=== PATIENT | male | born 1990 | race Caucasian/White ===

== ENCOUNTER 2018-02-28 21:03 | Emergency (ER) | payer OTHER ==
[2018-02-28 21:10] VITALS: BP 129/73
--- NOTE | 2018-02-28 21:55 | UC ---
Skin Complaint HPI - HPI Summary HPI Summary: 27 yo gentleman c/o L knee redness and swelling, progressively worse all day. Started with a splinter in knee 02/24/18, removed it but noted pustule at the site, which he popped. Redness increased, yesterday used a sterile knife to try to open the area, but did not notice purulence. Today redness, swelling, pain rapidly increased, and he noted dark discoloration around the affected site. Able to walk and bend knee, but hurts. Also c/o L calf pain. No sob / cp / palpitations. No distal p/d/w. No hx similar. Nonsmoker, although + 2nd hand smoke. Non-diabetic. Last tet booster - not sure (recently in but not sure if immun tet status). - History of Current Complaint Chief Complaint: UCSkin Time Seen by Provider: 02/28/18 21:44 Stated Complaint: SPLINTER IN KNEE Hx Obtained From: Patient Pain Intensity: 8 - Allergy/Home Medications Allergies/Adverse Reactions: Allergies Allergy/AdvReac Type Severity Reaction Status Date / Time No Known Allergies Allergy Verified 02/28/18 21:10 Home Medications: Home Medications Ibuprofen TAB* [Motrin TAB* 600 MG] 600 mg PO Q6H PRN 02/28/18 [History Confirmed 02/28/18] Review of Systems Constitutional: Negative Skin: Other - see hpi Eyes: Negative ENT: Negative Respiratory: Negative Cardiovascular: Negative Gastrointestinal: Negative Genitourinary: Negative Motor: Other - see hpi Musculoskeletal: Other: Neurological: Negative Psychological: Negative Is Patient Immunocompromised?: No All Other Systems Reviewed And Are Negative: Yes PMH/Surg Hx/FS Hx/Imm Hx Previously Healthy: Yes - Surgical History Surgical History: Yes Surgery Procedure, Year, and Place: appendectomy, hand surgery - Family History Known Family History: Negative: Diabetes - Social History Occupation: Employed Full-time Alcohol Use: None Substance Use Type: Marijuana Smoking Status (MU): Never Smoked Tobacco Physical Exam Triage Information Reviewed: Yes Appearance: Well-Nourished - NAD, conversing easily and appropriately Vital Signs: Initial Vital Signs Temp 98.7 F 02/28/18 21:06 Pulse 83 02/28/18 21:06 Resp 18 02/28/18 21:06 BP 129/73 02/28/18 21:06 Pulse Ox 100 02/28/18 21:06 Eye Exam: Normal - grossly normal ENT Exam: Normal - grossly normal Neck exam: Normal Neck: Positive: Supple Respiratory Exam: Normal - resp rate normal. No tachynpea, no dyspnea. Cardiovascular Exam: Normal - heart rate normal, good dp / pt pulses Left. Abdominal Exam: Normal Abdomen Description: Positive: Nontender Musculoskeletal Exam: Other - L ant sup tib region with dark eschar, flaked off with pink granulation underneath. + serous mild drainage. This was cultured. The area is firm and tender. + dark red, nonblanching area approx 4.5cm x 5cm swelling with demarcation visible. There is case packer, blanching redness extending down the ant leg and calf. Without phoebe shelly's, although general tender. Distal cap refill good. Distal pulses good. Neurological Exam: Normal - grossly nonfocal Psychological Exam: Normal - conversing easily and appropriately Skin Exam: Other - see "musc skel" Gait steady, slight limp on affected side Course/Dx - Course Course Of Treatment: Redness and swelling have worsened quickly over the course of the last few days, mostly today. Nonblanching deep red is concerning for deeper process, consider strep involvement. Knee tender, not frankly septic. Recommend ED evaluation and management. Mr. Espinosa expresses understanding and agreement. The person who drove him here will drive him to ED. Aware that he likely will need tetanus booster as well. Questions as posed answered to the best of my ability. - Diagnoses Provider Diagnoses: Cellulits. See MDM. To ED Discharge - Sign-Out/Discharge Documenting (check all that apply): Patient Departure - Discharge Plan Condition: Guarded Disposition: HOME-RECOMMEND TO ED Patient Education Materials: Cellulitis (ED) Referrals: Jimena Conde NP [Primary Care Provider] - Additional Instructions: Please go to the Emergency Department. Call 911 if problem in the meantime. - Billing Disposition and Condition Condition: GUARDED Disposition: Home-Recommend to ED
== END 2018-02-28 22:15 | disposition home health service (06) ==
LOC: UCEAST 21:03
DX: L03.116 Cellulitis of left lower limb (principal); Z77.22 Contact with and (suspected) exposure to environmental tobacco smoke (acute) (chronic)
CPT/HCPCS: 87070; 87205; 87640; 87641; 99202; G0463

== ENCOUNTER 2018-03-01 08:17 | Emergency (ER) | payer OTHER ==
[2018-03-01] MEDS ORDERED: Clindamycin 600 MG IVPREMIX(* 600 MG/50 ML SDV IV ONE (08:49)
[2018-03-01 09:26] LABS: Hematocrit 43 % (42-52); Hemoglobin 14.6 g/dl (14.0-18.0); Mean Corpuscular HGB Conc 34 g/dl (31-36); Mean Corpuscular Hemoglobin 30 pg (27-31); Mean Corpuscular Volume 89 fL (80-94); Platelet Count 251 10^3/ul (150-450); Red Cell Distribution Width 14 % (10.5-15); White Blood Count 8.1 10^3/ul (3.5-10.8)
[2018-03-01 09:27] LABS: ABS Basophils 0.1 10^3/ul (0-0.2); ABS Eosinophils 0.1 10^3/ul (0-0.6); ABS Lymphocytes 0.8 10^3/ul (1.0-4.8); ABS Monocytes 1.1 10^3/ul (0-0.8); ABS Neutrophils 5.9 10^3/ul (1.5-7.7); ABS Nucleated RBC 0 10^3/ul; Eosinophil % 1.5 % (0-6); Lymphocyte % 10.5 % (25-47); Nucleated Red Blood Cells % 0
[2018-03-01 09:51] LABS: EGFR Non-African American 83.2 (>60)
[2018-03-01 10:12] VITALS: BP 120/66
--- NOTE | 2018-03-01 10:21 | ED ---
Skin Complaint - HPI Summary HPI Summary: Patient is a 27-year-old male presenting to the ED with an abscess to the left superior tibia region 1 week. He was seen at urgent care yesterday and was encouraged to come to the ED, however he did not have time and instead comes to the ED at this time. He states the area began with a splinter which he removed successfully, however the area became more red and tender with a pustule forming to the surface. The area is approximately 5 cm in diameter with demarcation. There is slight erythema extending down to the anterior calf. Denies any swelling. - History of Current Complaint Chief Complaint: EDSoftTissueLowExtr Time Seen by Provider: 03/01/18 08:33 Stated Complaint: LT LEG PAIN Hx Obtained From: Patient Onset/Duration: Started Hours Ago Skin Exposure Onset/Duration: Hours Ago, Days Ago Timing: Constant, Lasting Days Onset Severity: Moderate Current Severity: Moderate Pain Intensity: 1 Pain Scale Used: 0-10 Numeric Skin Location: Discrete, Leg Character: Pain, Redness, Raised Aggravating Symptom(s): Nothing, Touch Alleviating Symptom(s): Nothing Associated Signs & Symptoms: Drainage Related History: Foreign Body - Allergy/Home Medications Allergies/Adverse Reactions: Allergies Allergy/AdvReac Type Severity Reaction Status Date / Time No Known Allergies Allergy Verified 02/28/18 21:10 PMH/Surg Hx/FS Hx/Imm Hx Previously Healthy: Yes Endocrine/Hematology History: Denies: Hx Diabetes, Hx Thyroid Disease Cardiovascular History: Denies: Hx Hypertension Respiratory History: Denies: Hx Asthma, Hx Chronic Obstructive Pulmonary Disease (COPD) GI History: Denies: Hx Ulcer - Surgical History Surgery Procedure, Year, and Place: appendectomy, hand surgery - Immunization History Hx Pertussis Vaccination: No Immunizations Up to Date: Unable to Obtain/Confirm Infectious Disease History: No Infectious Disease History: Denies: Hx Hepatitis, Hx Human Immunodeficiency Virus (HIV), Traveled Outside the [place] in Last 30 Days - Family History Known Family History: Negative: Diabetes - Social History Occupation: Employed Full-time Lives: With Family Alcohol Use: None Hx Substance Use: Yes Substance Use Type: Reports: Marijuana Hx Tobacco Use: No Smoking Status (MU): Never Smoked Tobacco Review of Systems Constitutional: Negative Negative: Fever, Chills, Fatigue, Skin Diaphoresis Negative: Palpitations, Chest Pain Negative: Shortness Of Breath, Cough Genitourinary: Negative Positive: no symptoms reported, see HPI Positive: Other - pustule overlying area of 5cm erythema and warmth representing abscess over cellulitis Neurological: Negative All Other Systems Reviewed And Are Negative: Yes Physical Exam Triage Information Reviewed: Yes Vital Signs On Initial Exam: Initial Vitals Temp Pulse Resp BP Pulse Ox 98.8 F 57 16 124/86 98 03/01/18 08:27 03/01/18 08:27 03/01/18 08:27 03/01/18 08:27 03/01/18 08:27 Vital Signs Reviewed: Yes Appearance: Positive: Well-Appearing, Well-Nourished Skin: Positive: Warm, Skin Color Reflects Adequate Perfusion, Other - pustule overlying area of 5cm erythema and warmth representing abscess over cellulitis Head/Face: Positive: Normal Head/Face Inspection Eyes: Positive: EOMI, JORDI, Conjunctiva Clear Neck: Positive: Supple, No Lymphadenopathy Respiratory/Lung Sounds: Positive: Clear to Auscultation, Breath Sounds Present Cardiovascular: Positive: RRR, Pulses are Symmetrical in both Upper and Lower Extremities Musculoskeletal: Positive: Strength/ROM Intact Neurological: Positive: Sensory/Motor Intact, Alert, Oriented to Person Place, Time, Speech Normal Psychiatric: Positive: Normal, Affect/Mood Appropriate AVPU Assessment: Alert Diagnostics - Vital Signs Vital Signs Temp Pulse Resp BP Pulse Ox 03/01/18 10:10 98.7 F 69 16 120/66 98 03/01/18 08:27 98.8 F 57 16 124/86 98 - Laboratory Lab Results: Lab Results 03/01/18 03/01/18 Range/Units 09:03 09:03 WBC 8.1 (3.5-10.8) 10^3/ul RBC 4.80 (4.00-5.40) 10^6/ul Hgb 14.6 (14.0-18.0) g/dl Hct 43 (42-52) % MCV 89 (80-94) fL MCH 30 (27-31) pg MCHC 34 (31-36) g/dl RDW 14 (10.5-15) % Plt Count 251 (150-450) 10^3/ul MPV 8.0 (7.4-10.4) um3 Neut % (Auto) 73.0 (38-83) % Lymph % (Auto) 10.5 L (25-47) % [place] % (Auto) 14.2 H (0-7) % Eos % (Auto) 1.5 (0-6) % Baso % (Auto) 0.8 (0-2) % Absolute Neuts (auto) 5.9 (1.5-7.7) 10^3/ul Absolute Lymphs (auto) 0.8 L (1.0-4.8) 10^3/ul Absolute Monos (auto) 1.1 H (0-0.8) 10^3/ul Absolute Eos (auto) 0.1 (0-0.6) 10^3/ul Absolute Basos (auto) 0.1 (0-0.2) 10^3/ul Absolute Nucleated RBC 0 10^3/ul Nucleated RBC % 0 Sodium 138 (135-145) mmol/L Potassium 4.1 (3.5-5.0) mmol/L Chloride 106 (101-111) mmol/L Carbon Dioxide 27 (22-32) mmol/L Anion Gap 5 (2-11) mmol/L BUN 11 (6-24) mg/dL Creatinine 1.06 (0.67-1.17) mg/dL Est GFR ( Amer) 100.7 (>60) Est GFR (Non-Af Amer) 83.2 (>60) BUN/Creatinine Ratio 10.4 (8-20) Glucose 93 (70-100) mg/dL Calcium 9.2 (8.6-10.3) mg/dL Total Bilirubin 0.40 (0.2-1.0) mg/dL AST 18 (13-39) U/L ALT 13 (7-52) U/L Alkaline Phosphatase 80 (34-104) U/L C-Reactive Protein 5.66 (<8.01) mg/L Total Protein 7.0 (6.4-8.9) g/dL Albumin 4.2 (3.2-5.2) g/dL Globulin 2.8 (2-4) g/dL Albumin/Globulin Ratio 1.5 (1-3) Result Diagrams: 03/01/18 09:03 03/01/18 09:03 Lab Statement: Any lab studies that have been ordered have been reviewed, and results considered in the medical decision making process. Course/Dx - Course Course Of Treatment: During the course of treatment, the patient is evaluated for an abscess to the superior left tibia which measures approximately 5 cm in diameter with a pustule to the surface. He was told to go to the ED from urgent care yesterday, however he arrives today and said. Endorses tenderness, however states redness and swelling have decreased since yesterday. He was not placed on oral antibiotics. He was sent here for IV antibiotics. On arrival, he appears well with no fever, sweats, chills. I have offered oral antibiotics , however he prefers a dose of IV antibiotics first before he tries oral antibiotics. There is serous drainage from the area, this was cultured yesterday and sent for pathology. Will not send for another culture. We'll change antibiotics at the time if needed. - Diagnoses Provider Diagnoses: Abscess Discharge - Sign-Out/Discharge Documenting (check all that apply): Patient Departure - Discharge Plan Condition: Stable Disposition: HOME Prescriptions: Clindamycin Cap(NF) [Clindamycin Cap 300 mg Cap(NF)] 300 mg PO Q6H #28 cap Patient Education Materials: Abscess (ED) Referrals: Jimena Conde NP [Primary Care Provider] - Additional Instructions: Clindamycin 4 times daily 7 days If you develop any fevers, sweats, chills, return to the ED immediately If he develop worsening erythema or streaking up or down the leg, return to the ED Continue antibiotics until they are gone, even if you begin to feel better - Billing Disposition and Condition Condition: STABLE Disposition: Home
== END 2018-03-01 10:10 | disposition home or self-care (01) ==
LOC: ED 08:17
DX: L02.416 Cutaneous abscess of left lower limb (principal)
CPT/HCPCS: 36415; 80053; 85025; 86140; 96374; 99282